=== PATIENT | male | born 1975 | race Caucasian/White ===

== ENCOUNTER 2018-06-25 06:40 | Emergency (ER) | payer SELFPAY ==
[~2018-06-25] VITALS: Ht 160 cm; Wt 59.1 kg
[2018-06-25 07:28] VITALS: BP 131/76
[2018-06-25] MEDS ORDERED: KETOROLAC TROMETHAMINE 60 MG/2 ML VIAL IM ONE (07:45)
[2018-06-25] MEDS ORDERED: CYCLOBENZAPRINE HCL 10 MG TABLET PO ONE (07:45)
[2018-06-25] MEDS ORDERED: OxyCODONE HCL/ACETAMINOPHEN 5-325 MG TABLET PO ONE (11:00)
== END 2018-06-25 11:08 | disposition home or self-care (01) ==
LOC: EMS 06:40
DX: M54.31 Sciatica, right side (principal)
CPT/HCPCS: 96372; 99283; J1885